=== PATIENT | female | born 1955 | race Caucasian/White ===

== ENCOUNTER → 2017-06-05 | Outpatient (CLI) | payer OTHER ==
[~2017-06-05] MED LIST: ALBUTEROL17 GM INH; BENADRYL25 MG PO; BUPROPION XL300 MG PO; DIOVAN HCT 80/11 TAB PO; DOXEPIN HCL100 M1 PO; DOXEPIN PO; DOXYCYCLINE HY100 M3 PO; ELIMITE60 GM TOP; GLUCOTROL XL PO; K-DUR10 MEQ PO; LASIX20 MG PO; LEVO-T150 MCG PO; LOPRESSOR PO; LOSARTAN POTASS50 MG PO; PAXIL PO; PREDNISONE10 MG PO; SYNTHROID PO; ZYLOPRIM100 MG DOB
--- NOTE | ~2017-06-05 | CT57 ---
[facility] A Service of [facility] RADIOLOGY TEXT RESULTS PATIENT: NADEEM BLOUNT LOCATION: [facility] : 51 UNIT #: [id number] AGE: [address]: Dano Gambino MD SEX: F ORDER DR: [id number] [facility]. [place], [place] [address] [id number] O MR#: [id number] Acc #: [id number] NAME: NADEEM BLOUNT : 1955 SEX: F STUDY DATE/TIME: 06/05/2017 14:18 UNIT: [facility] ROOM: STUDY DESCRIPTION: CT Chest Wo Cont Attending Physician: Dano Gambino M.D. Referring Physician: Dano Gambino M.D. Ordering Physician: Dano Gambino M.D. MEDICAL IMAGING REPORT This report is preliminary unless electronic signature is present EXAM CT of the chest without contrast INDICATIONS Follow up aortic aneurysm. TECHNIQUE CT scan of the chest was performed without contrast. Coronal and sagittal reformatted images were obtained. This CT exam was performed with one or more of the following radiation dose reduction techniques: automatic exposure control, adjustment of mA and/or kV according to patient size, and iterative reconstruction. COMPARISON STUDIES Comparison is made with 11/11/2016. FINDINGS Re-demonstrated is aneurysmal dilatation of the ascending aorta measuring about 4.1 cm in greatest dimension which is not significantly changed. The ascending aorta is somewhat difficult to measure, however, due to significant cardiac motion artifact. The descending thoracic aorta is within normal limits. Coronary artery calcifications. No suspicious lymphadenopathy. There is some patchy atelectasis or infiltrate within the lower lobes bilaterally. Correlate for any signs and symptoms or history of pneumonia. No pleural effusion. Limited imaging in the upper abdomen is unremarkable. The bone windows are unremarkable. IMPRESSION 1. Study is limited due to cardiac motion artifact. However, there does not appear to be any significant change in the size of the ascending aortic aneurysm, which measures about 4.[address] [facility] A Service of [facility] RADIOLOGY TEXT RESULTS PATIENT: NADEEM BLOUNT LOCATION: [facility] : 51 UNIT #: [id number] AGE: [address]: Dano Gambino MD SEX: F ORDER DR: 2. There is bilateral dependent lower lobe atelectasis or infiltrate. Correlate for any signs or symptoms of pneumonia. Dictated by... Feliz Alicea M.D. THIS IS AN ELECTRONICALLY VERIFIED REPORT Feliz Alicea M.D. at 06/07/2017 7:34 AM ARS/pcl TD: 06/06/2017 17:09 JOB #: [id number] MEDICAL IMAGING REPORT Page 1 of 1 COPY
== END | disposition home or self-care (01) ==
LOC: CCAT 12:37
DX: I71.2 Thoracic aortic aneurysm, without rupture (principal); R93.8 Abnormal findings on diagnostic imaging of other specified body structures; E11.9 Type 2 diabetes mellitus without complications; Z88.5 Allergy status to narcotic agent
CPT/HCPCS: 71250